=== PATIENT | female | born 1980 | race Caucasian/White ===

== ENCOUNTER 2016-06-23 17:03 | Emergency (ER) | payer OTHER ==
--- NOTE | 2016-06-23 17:44 | ED CLINICAL REPORT ---
Clinical Report - Physicians/Mid Levels [facility] [address] [place] [address] 06/23/2016 17:03 Patient: CHAUNCEY RAWLS Time Seen: 17:39; initial patient contact, initial documentation, patient care assumed. Arrived- By private vehicle. Historian- patient. HISTORY OF PRESENT ILLNESS Chief Complaint: LESION. This started yesterday and is still present. Not itchy or burning. It is described as painful. It has been located on the face. No cause has been identified. Similar symptoms previously: Frequently, worse. Recent medical care: Not recently seen/assessed. REVIEW OF SYSTEMS No fever or difficulty breathing. All systems otherwise negative, except as recorded above. PAST HISTORY See nurses notes. PROBLEMS: Concussion. Contusion. Pneumonia. Impetigo. Immunizations. Impacted Cerumen. LNMP - Last Normal Menstrual Period. Anxiety Reaction. Depression. --17:26 Sharlene Atkins R.N. ADDITIONAL SURGERIES: . Hernia Repair. Tubal Ligation. --17:26 Sharlene Atkins R.N. SOCIAL HISTORY Former smoker. Occasional alcohol use. History of heavy drug use: methamphetamines, marijuana. Recently used drugs. Under influence in ED. No recent travel. Is a local resident. FAMILY HISTORY Negative. ADDITIONAL NOTES The nursing notes have been reviewed with agreement regarding the chief complaint, HPI, ROS, PMH and patient medications and allergies. PHYSICAL EXAM Vital Signs: 06/23/2016 17:23 BP: 130/92. HR: 97. RR: 18. O2 saturation: 97%. Temp: 98.5 F. Pain level now: 7/10. Have been reviewed as normal and appear to be correct. Appearance: Alert. Oriented X3. No acute distress. (pt appears under the influence, pt dirty and unkept). Eyes: Pupils equal, round and reactive to light. Conjunctivae and eyelids normal. Neck: Neck supple. Respiratory: No respiratory distress. Skin: Skin warm and dry. Normal skin color. No rash. Normal skin turgor. (acne noted to R side of chin area, mild swelling, mild erythema, mild tenderness). Extremities: Normal external inspection. Extremities nontender. Neuro: Oriented X 3. No motor deficit. No sensory deficit. PROGRESS AND PROCEDURES Course of Care: 17:40 06/23/16. pt has sammi for large doses of narcs, last rx 06/21 #240 hydrocodone 7.5mg, see report for full details. Patient counseled in person regarding the patient's stable condition and diagnosis. 17:44. Differential Diagnosis: Other possible considerations: acne, abscess, cellulitis, mrsa, folliculitis, substance abuse. Above considerations are based on history and physical exam. Differential diagnosis was discussed with patient. Disposition: Discharged home in good and unchanged condition (17:44). Condition: good and stable. CLINICAL IMPRESSION Acne vulgaris (common acne). INSTRUCTIONS Warnings: GENERAL WARNINGS: Return or contact your physician immediately if your condition worsens or changes unexpectedly, if not improving as expected, or if other problems arise. Specifically return if problem worsens. Prescription Medications: Bactrim DS 800 mg / 160 mg: take 1 tablet orally every 12 hours for 10 days. No refill. Follow-up: Follow up with your doctor in about three days even if well and for wound check. Call for an appointment. Summary of care provided to patient. Understanding of the discharge instructions verbalized by patient. (Electronically signed by Mony Alex A.R.N.P. 06/23/2016 18:20)
--- NOTE | 2016-06-23 17:44 | ED NURSING NOTES ---
Clinical Report - Nurses [facility] [address] [place] [address] 06/23/2016 17:03 Patient: CHAUNCEY RAWLS TRIAGE Triage time 17:23. Acuity: LEVEL 3. Chief Complaint: SKIN LESION. Alert. No acute distress. JASSON COMA SCORE: Jasson Coma Scale: 15- eyes open spontaneously (4); best verbal response- oriented x 4 (5); best motor response- obeys commands (6). --17:30 Sharlene Atkins R.N. 17:23 06/23/16. BP: 130/92. HR: 97. RR: 18. O2 saturation: 97%. Temp: 98.5 F (oral). Pain level now: 10. --17:30 Sharlene Atkins R.N. Weight: 62.5 kg stated. Height/Length: 62 inches Per Patient. BMI: 25.2. --17:26 Sharlene Atkins R.N. Medications None. --17:24 Sharlene Atkins R.N. Medication/allergy information source: the patient. --17:30 Sharlene Atkins R.N. Allergies Percocet. (hallucinations, paranoia) --17:25 Sharlene Atkins R.N. History Arrived by private vehicle. Historian: patient. Primary physician (Delia). Reported as located on the face. This started yesterday. It is described as painful. PAST MEDICAL HX: Last normal menstrual period- May 2016. SOCIAL HX: Former smoker. History of drug use: marijuana. (stopped meth, but then states she smoked "a little" a couple of days ago). No alcohol use. FALL RISK ASSESSMENT: Fall risk assessment completed. No fall risk identified. FUNCTIONAL ASSESSMENT: Functional assessment: no impairments noted. LEARNING NEEDS ASSESSMENT: The learning needs assessment revealed no barriers. --17:30 Sharlene Atkins R.N. PROBLEMS: Concussion. Contusion. Pneumonia. Impetigo. Immunizations. Impacted Cerumen. LNMP - Last Normal Menstrual Period. Anxiety Reaction. Depression. --17:26 Sharlene Atkins R.N. ADDITIONAL SURGERIES: . Hernia Repair. Tubal Ligation. --17:26 Sharlene Atkins R.N. Assessment GENERAL / NEURO / PSYCH: Alert. Oriented X 4. Appears in no acute distress. Patient appears calm and cooperative. ( speaks very softly). RESPIRATORY: Respirations not labored. SKIN: Skin is warm and dry. --17:30 Sharlene Atkins R.N. Interventions ID and allergy band on patient. To treatment room. --17:30 Sharlene Atkins R.N. PHYSICAL ASSESSMENT 17:35 06/23/16. Ambulatory to room. GENERAL / NEURO / PSYCH: (speaks very softly). She is awake, alert and in no distress and is oriented and cooperative. She has poor eye contact. RESPIRATORY: Respirations not labored. SKIN: Skin is warm and dry. Swelling present- right jaw. --17:35 Sharlene Atkins R.N. NURSING PROGRESS NOTES 17:35 06/23/16. Head of bed elevated. Call light placed in reach. Side rails up x 1. Bed placed in lowest position. Brakes of bed on. --17:35 Sharlene Atkins R.N. DISPOSITION / DISCHARGE 18:08 06/23/16. No learning barriers present. Discharge instructions provided and reviewed with the patient. Reviewed medication(s). Treatments reviewed. Patient verbalized understanding. Written instructions provided in Slovak. The patient was discharged by the nurse practitioner. She was discharged home and accompanied by parent. She left the Emergency Department ambulatory and via private vehicle. Parent driving. --18:08 Iza Figueroa R.N. 18:04 06/23/16. BP: 126/88. HR: 109. RR: 15. O2 saturation: 96%. Temp: deferred. Pain level now: 12/27. --18:08 Iza Figueroa R.N. Locked/Released at 06/27/2016 9:17 by Summer Nguyen R.N.
--- NOTE | 2016-06-23 17:44 | ED CLINICAL REPORT ---
Clinical Report - Physicians/Mid Levels [facility] [address] [place] [address] 06/23/2016 17:03 Patient: CHAUNCEY RAWLS Time Seen: 17:39; initial patient contact, initial documentation, patient care assumed. Arrived- By private vehicle. Historian- patient. HISTORY OF PRESENT ILLNESS Chief Complaint: LESION. This started yesterday and is still present. Not itchy or burning. It is described as painful. It has been located on the face. No cause has been identified. Similar symptoms previously: Frequently, worse. Recent medical care: Not recently seen/assessed. REVIEW OF SYSTEMS No fever or difficulty breathing. All systems otherwise negative, except as recorded above. PAST HISTORY See nurses notes. PROBLEMS: Concussion. Contusion. Pneumonia. Impetigo. Immunizations. Impacted Cerumen. LNMP - Last Normal Menstrual Period. Anxiety Reaction. Depression. --17:26 Sharlene Atkins R.N. ADDITIONAL SURGERIES: . Hernia Repair. Tubal Ligation. --17:26 Sharlene Atkins R.N. SOCIAL HISTORY Former smoker. Occasional alcohol use. History of heavy drug use: methamphetamines, marijuana. Recently used drugs. Under influence in ED. No recent travel. Is a local resident. FAMILY HISTORY Negative. ADDITIONAL NOTES The nursing notes have been reviewed with agreement regarding the chief complaint, HPI, ROS, PMH and patient medications and allergies. PHYSICAL EXAM Vital Signs: 06/23/2016 17:23 BP: 130/92. HR: 97. RR: 18. O2 saturation: 97%. Temp: 98.5 F. Pain level now: 7/10. Have been reviewed as normal and appear to be correct. Appearance: Alert. Oriented X3. No acute distress. (pt appears under the influence, pt dirty and unkept). Eyes: Pupils equal, round and reactive to light. Conjunctivae and eyelids normal. Neck: Neck supple. Respiratory: No respiratory distress. Skin: Skin warm and dry. Normal skin color. No rash. Normal skin turgor. (acne noted to R side of chin area, mild swelling, mild erythema, mild tenderness). Extremities: Normal external inspection. Extremities nontender. Neuro: Oriented X 3. No motor deficit. No sensory deficit. PROGRESS AND PROCEDURES Course of Care: 17:40 06/23/16. pt has sammi for large doses of narcs, last rx 06/21 #240 hydrocodone 7.5mg, see report for full details. Patient counseled in person regarding the patient's stable condition and diagnosis. 17:44. Differential Diagnosis: Other possible considerations: acne, abscess, cellulitis, mrsa, folliculitis, substance abuse. Above considerations are based on history and physical exam. Differential diagnosis was discussed with patient. Disposition: Discharged home in good and unchanged condition (17:44). Condition: good and stable. CLINICAL IMPRESSION Acne vulgaris (common acne). INSTRUCTIONS Warnings: GENERAL WARNINGS: Return or contact your physician immediately if your condition worsens or changes unexpectedly, if not improving as expected, or if other problems arise. Specifically return if problem worsens. Prescription Medications: Bactrim DS 800 mg / 160 mg: take 1 tablet orally every 12 hours for 10 days. No refill. Follow-up: Follow up with your doctor in about three days even if well and for wound check. Call for an appointment. Summary of care provided to patient. Understanding of the discharge instructions verbalized by patient. (Electronically signed by Mony Alex A.R.N.P. 06/23/2016 18:20)
--- NOTE | 2016-06-27 09:18 | ED MAR SUMMARY ---
..... Medication Administration Record [facility] [address] [place], [place] [id number] Patient: CHAUNCEY RAWLS Visit ID: [id number] 36y, F Weight: 62.5 kg Height/Length: 62 in BMI: 25.2 ALLERGIES: Percocet
--- NOTE | 2016-06-27 09:18 | ED MAR SUMMARY ---
..... Medication Administration Record [facility] [address] [place], [place] [id number] Patient: CHAUNCEY RAWLS Visit ID: [id number] 36y, F Weight: 62.5 kg Height/Length: 62 in BMI: 25.2 ALLERGIES: Percocet
--- NOTE | 2016-06-27 09:18 | ED DISCHARGE INSTRUCTIONS ---
Patient: CHAUNCEY RAWLS General Instructions [facility] VisitID: [id number] [place] [address] 36y, F Registration Date/Time: 06/23/2016 Acne vulgaris (common acne). INSTRUCTIONS Warnings: GENERAL WARNINGS: Return or contact your physician immediately if your condition worsens or changes unexpectedly, if not improving as expected, or if other problems arise. Specifically return if problem worsens. Prescription Medications: Bactrim DS 800 mg / 160 mg: take 1 tablet orally every 12 hours for 10 days. No refill. Follow-up: Follow up with your doctor in about three days even if well and for wound check. Call for an appointment. Summary of care provided to patient. Understanding of the discharge instructions verbalized by patient. ADDITIONAL INFORMATION Acne Acne is an inflammatory condition of the skin. During adolescence (especially in boys) there is an increase in production of skin oils on the face, neck, chest, upper back, and upper arms. These oils can block hair follicles and allow an overgrowth of normal bacteria. This results in acne. Mild acne causes whiteheads, blackheads, and pimples. More severe acne causes cysts and scarring. Acne usually clears up by your mid-20s. Factors that make acne worse: Oil-based cosmetics Heavy sweating Frequent or hard scrubbing of the skin can irritate the acne lesions Skin rubbing against helmets, shoulder pads, turtlenecks, and bra straps Certain types of oral contraceptives Milk from cows treated with hormones Home Care: Treatments may include topical products (creams, lotions, or gels), oral antibiotics and other medicines. Follow the treatment plan advised by your doctor. It usually takes2 to3 months to see a result. Switching from oil-based to water-based cosmetics may improve acne in girls. Follow Up with your doctor or as advised by our staff. For additional information: [place] [employer] www.skincarephysicians.com/acnenet/acne.html National Library of Medicine www.nlm.nih.gov/medlineplus/tutorials/acne/htm/index.htm www.acne.com Get Prompt Medical Attention if any of the following occur: Acnecyst that gets larger or more painful Sulfamethoxazole, Trimethoprim Oral tablet What is this medicine? SULFAMETHOXAZOLE; TRIMETHOPRIM or SMX-TMP (suhl fuh meth OK claudia zohl; trye METH oh prim) is a combination of a sulfonamide antibiotic and a second antibiotic, trimethoprim. It is used to treat or prevent certain kinds of bacterial infections. It will not work for colds, flu, or other viral infections. How should I use this medicine? Take this medicine by mouth with a full glass of water. Follow the directions on the prescription label. Take your medicine at regular intervals. Do not take it more often than directed. Do not skip doses or stop your medicine early. Talk to your transactional attorney regarding the use of this medicine in children. Special care may be needed. This medicine has been used in children as young as 2 months of age. What side effects may I notice from receiving this medicine? Side effects that you should report to your doctor or health neurocritical care physician as soon as possible: allergic reactions like skin rash or hives, swelling of the face, lips, or tongue breathing problems fever or chills, sore throat irregular heartbeat, chest pain joint or muscle pain pain or difficulty passing urine red pinpoint spots on skin redness, blistering, peeling or loosening of the skin, including inside the mouth unusual bleeding or bruising unusually weak or tired yellowing of the eyes or skin Side effects that usually do not require medical attention (report to your doctor or health neurocritical care physician if they continue or are bothersome): diarrhea dizziness headache loss of appetite nausea, vomiting nervousness What may interact with this medicine? Do not take this medicine with any of the following medications: aminobenzoate potassium dofetilide metronidazole This medicine may also interact with the following medications: EDDA inhibitors like benazepril, enalapril, lisinopril, and ramipril cyclosporine digoxin diuretics indomethacin medicines for diabetes methenamine methotrexate phenytoin potassium supplements pyrimethamine sulfinpyrazone tricyclic antidepressants warfarin What if I miss a dose? If you miss a dose, take it as soon as you can. If it is almost time for your next dose, take only that dose. Do not take double or extra doses. Where should I keep my medicine? Keep out of the reach of children. Store at room temperature between 20 to 25 degrees C (68 to 77 degrees F). Protect from light. Throw away any unused medicine after the expiration date. What should I tell my health care provider before I take this medicine? They need to know if you have any of these conditions: anemia asthma being treated with anticonvulsants if you frequently drink alcohol containing drinks kidney disease liver disease low level of folic acid or [id number] dehydrogenase poor nutrition or malabsorption porphyria severe allergies thyroid disorder an unusual or allergic reaction to sulfamethoxazole, trimethoprim, sulfa drugs, other medicines, foods, dyes, or preservatives or trying to get breast-feeding What should I watch for while using this medicine? Tell your doctor or health neurocritical care physician if your symptoms do not improve. Drink several glasses of water a day to reduce the risk of kidney problems. Do not treat diarrhea with over the counter products. Contact your doctor if you have diarrhea that lasts more than 2 days or if it is severe and watery. This medicine can make you more sensitive to the sun. Keep out of the sun. If you cannot avoid being in the sun, wear protective clothing and use a sunscreen. Do not use sun lamps or tanning beds/booths. You have been given the following additional information: Acne Sulfamethoxazole, Trimethoprim Oral tablet (Electronically signed by Mony Alex A.R.N.P. 06/23/2016 18:20)
--- NOTE | 2016-06-27 09:18 | ED MED RECONCILIATION SUMMARY ---
Patient: CHAUNCEY RAWLS Medication Reconciliation Report [facility] VisitID: [id number] [place] [address] 36y, F Registration Date/Time: 06/23/2016 Weight: 62.5 kg Height/Length: 62 in. BMI: 25.2 ALLERGIES: Percocet The patient's Home Medications are listed below: NONE. The source(s) of the original Home Medication information: patient The following Medications were given to the patient in the Emergency Department: None. The following Medications were prescribed to the patient: Bactrim DS 800 mg / 160 mg: take 1 tablet orally every 12 hours for 10 days. No refill. -- Mony Alex A.R.N.P.
--- NOTE | 2016-06-27 09:18 | ED MED RECONCILIATION SUMMARY ---
Patient: CHAUNCEY RAWLS Medication Reconciliation Report [facility] VisitID: [id number] [place] [address] 36y, F Registration Date/Time: 06/23/2016 Weight: 62.5 kg Height/Length: 62 in. BMI: 25.2 ALLERGIES: Percocet The patient's Home Medications are listed below: NONE. The source(s) of the original Home Medication information: patient The following Medications were given to the patient in the Emergency Department: None. The following Medications were prescribed to the patient: Bactrim DS 800 mg / 160 mg: take 1 tablet orally every 12 hours for 10 days. No refill. -- Mony Alex A.R.N.P.
--- NOTE | 2016-06-27 09:18 | ED DISCHARGE INSTRUCTIONS ---
Patient: CHAUNCEY RAWLS General Instructions [facility] VisitID: [id number] [address] [address] 36y, F Registration Date/Time: 06/23/2016 Acne vulgaris (common acne). INSTRUCTIONS Warnings: GENERAL WARNINGS: Return or contact your physician immediately if your condition worsens or changes unexpectedly, if not improving as expected, or if other problems arise. Specifically return if problem worsens. Prescription Medications: Bactrim DS 800 mg / 160 mg: take 1 tablet orally every 12 hours for 10 days. No refill. Follow-up: Follow up with your doctor in about three days even if well and for wound check. Call for an appointment. Summary of care provided to patient. Understanding of the discharge instructions verbalized by patient. ADDITIONAL INFORMATION Acne Acne is an inflammatory condition of the skin. During adolescence (especially in boys) there is an increase in production of skin oils on the face, neck, chest, upper back, and upper arms. These oils can block hair follicles and allow an overgrowth of normal bacteria. This results in acne. Mild acne causes whiteheads, blackheads, and pimples. More severe acne causes cysts and scarring. Acne usually clears up by your mid-20s. Factors that make acne worse: Oil-based cosmetics Heavy sweating Frequent or hard scrubbing of the skin can irritate the acne lesions Skin rubbing against helmets, shoulder pads, turtlenecks, and bra straps Certain types of oral contraceptives Milk from cows treated with hormones Home Care: Treatments may include topical products (creams, lotions, or gels), oral antibiotics and other medicines. Follow the treatment plan advised by your doctor. It usually takes2 to3 months to see a result. Switching from oil-based to water-based cosmetics may improve acne in girls. Follow Up with your doctor or as advised by our staff. For additional information: [employer] www.sk[employer].com/acnenet/acne.html National [employer] www.nlm.nih.gov/medlineplus/tutorials/acne/htm/index.htm www.acne.com Get Prompt Medical Attention if any of the following occur: Acnecyst that gets larger or more painful Sulfamethoxazole, Trimethoprim Oral tablet What is this medicine? SULFAMETHOXAZOLE; TRIMETHOPRIM or SMX-TMP (suhl fuh meth OK claudia zohl; trye METH oh prim) is a combination of a sulfonamide antibiotic and a second antibiotic, trimethoprim. It is used to treat or prevent certain kinds of bacterial infections. It will not work for colds, flu, or other viral infections. How should I use this medicine? Take this medicine by mouth with a full glass of water. Follow the directions on the prescription label. Take your medicine at regular intervals. Do not take it more often than directed. Do not skip doses or stop your medicine early. Talk to your forensic artist regarding the use of this medicine in children. Special care may be needed. This medicine has been used in children as young as 2 months of age. What side effects may I notice from receiving this medicine? Side effects that you should report to your doctor or health customer care team coach as soon as possible: allergic reactions like skin rash or hives, swelling of the face, lips, or tongue breathing problems fever or chills, sore throat irregular heartbeat, chest pain joint or muscle pain pain or difficulty passing urine red pinpoint spots on skin redness, blistering, peeling or loosening of the skin, including inside the mouth unusual bleeding or bruising unusually weak or tired yellowing of the eyes or skin Side effects that usually do not require medical attention (report to your doctor or health customer care team coach if they continue or are bothersome): diarrhea dizziness headache loss of appetite nausea, vomiting nervousness What may interact with this medicine? Do not take this medicine with any of the following medications: aminobenzoate potassium dofetilide metronidazole This medicine may also interact with the following medications: EDDA inhibitors like benazepril, enalapril, lisinopril, and ramipril cyclosporine digoxin diuretics indomethacin medicines for diabetes methenamine methotrexate phenytoin potassium supplements pyrimethamine sulfinpyrazone tricyclic antidepressants warfarin What if I miss a dose? If you miss a dose, take it as soon as you can. If it is almost time for your next dose, take only that dose. Do not take double or extra doses. Where should I keep my medicine? Keep out of the reach of children. Store at room temperature between 20 to 25 degrees C (68 to 77 degrees F). Protect from light. Throw away any unused medicine after the expiration date. What should I tell my health care provider before I take this medicine? They need to know if you have any of these conditions: anemia asthma being treated with anticonvulsants if you frequently drink alcohol containing drinks kidney disease liver disease low level of folic acid or [id number] dehydrogenase poor nutrition or malabsorption porphyria severe allergies thyroid disorder an unusual or allergic reaction to sulfamethoxazole, trimethoprim, sulfa drugs, other medicines, foods, dyes, or preservatives or trying to get breast-feeding What should I watch for while using this medicine? Tell your doctor or health customer care team coach if your symptoms do not improve. Drink several glasses of water a day to reduce the risk of kidney problems. Do not treat diarrhea with over the counter products. Contact your doctor if you have diarrhea that lasts more than 2 days or if it is severe and watery. This medicine can make you more sensitive to the sun. Keep out of the sun. If you cannot avoid being in the sun, wear protective clothing and use a sunscreen. Do not use sun lamps or tanning beds/booths. You have been given the following additional information: Acne Sulfamethoxazole, Trimethoprim Oral tablet (Electronically signed by Mony Alex A.R.N.P. 06/23/2016 18:20)
== END 2016-06-23 18:08 | disposition home or self-care (01) ==
LOC: ED SRH 17:03
DX: L70.0 Acne vulgaris (principal); Z87.891 Personal history of nicotine dependence; Z88.6 Allergy status to analgesic agent; Z88.5 Allergy status to narcotic agent